=== PATIENT | male | born 1965 | race Caucasian/White ===

== ENCOUNTER → 2017-11-09 | Day surgery (SDC) | payer BC ==
[2017-11-07 08:57] VITALS: BMI 28.2
[~2017-11-09] MED LIST: ACETAMINOPHEN IV (For NPO) 1,000 MG in EMPTY BAG 1 BAG IVPB ONE; DEXAMETHASONE SOD PHOS (MDV) 100 MG/10 ML VIAL ONE; DEXAMETHASONE SOD PHOSPHATE 10 MG/ML 1 ML VIAL IV ONE; LACTATED RINGERS 1,000 ML IV SCH; LIDOCAINE 1% 20 ML VIAL (10MG/ML) FOR IV START INTRADERMA ONE; LIDOCAINE 1% INJ 10MG/ML (20 ML MDV) ONE; MIDAZOLAM 2 MG/2 ML VIAL IV PRN; MIDAZOLAM 2 MG/2 ML VIAL ONE; ONDANSETRON 4 MG/2 ML VIAL IVP ONE; OXYMETAZOLINE 0.05% NASL SPRAY 1 SPRAY BOTTLE EA NOSTRIL ONE; PROPOFOL 10 MG/ML 20 ML VIAL IV ONE; Pre Op ABX Message 1 EACH MISC MISCELLANE ONE; ROCURONIUM BROMIDE 10 MG/ML 10 ML VIAL IV ONE; SCOPOLAMINE 1.5MG/72HR PATCH TRANSDERM ONE; ceFAZolin 1,000 MG in DEXTROSE/WATER 1 50ML.BAG IVPB ONE; ePHEDrine SULFATE/0.9% NACL/PF 50 MG/5 ML SYRINGE IV ONE; fentaNYL (PF) 50 MCG/ML 2 ML AMP IV PRN; fentaNYL (PF) 50 MCG/ML 2 ML AMP ONE
--- NOTE | 2017-11-09 02:03 | HP ---
HISTORY AND PHYSICAL CHIEF COMPLAINT: Nasal stuffiness. HISTORY OF PRESENT ILLNESS: The patient is a 52-year-old male who was recently seen in my office complaining of having nasal stuffiness. The patient has history of having chronic dale sinusitis and also nasal polyps. At the time that he was seen in my office, clinical examination intranasally revealed bilateral nasal polyposis. The patient was placed on a course of dexamethasone for 10 days. This caused the polyps to shrink slightly but they did not completely disappear. Therefore, it was recommended that the patient undergo a bilateral intranasal polypectomy under general anesthesia. PAST MEDICAL HISTORY: Past medical history reveals patient has a known allergy to ASPIRIN and to NSAIDs. CURRENT MEDICATIONS: Include Symbicort, Claritin, Nasacort nasal spray. REVIEW OF SYSTEMS: Review of systems revealed that the respiratory system is positive for asthma. The remainder of the review of systems is essentially unremarkable. PHYSICAL EXAMINATION: The patient is a pleasant 52-year-old male who was alert and cooperative. HEENT examination: Patient is normocephalic. Tympanic membranes are normal. Middle ear spaces are free of any fluid or infection. Pupils equal, round, react to light and accommodation. Extraocular movements within normal limits. Intranasal examination reveals slight septal deviation with slight hypertrophy of the inferior turbinates. In addition, there is bilateral nasal polyps. Examination of oropharynx, palpation of neck and cranial nerves 2 through 12 are all within normal limits. CHEST/CARDIOVASCULAR: Both lung krishna are clear to percussion and auscultation. The patient is in regular sinus rhythm. S1, S2 are present without evidence of any murmurs, S3 or S4. Peripheral pulses are bilaterally symmetrical and within normal limits. ABDOMEN: There is no evidence of any masses, megaly, or tenderness. The abdomen is soft. SKIN: Unremarkable. Musculoskeletal and neurological are within normal limits. RECTAL: The rectal exam is deferred at this time because the patient has this done on a regular basis at his family physician's office. PREVIOUS SURGERIES: Include bilateral nasal polypectomy x1, septoplasty, rhinoplasty, endoscopic sinus surgeries, right shoulder surgery, tonsillectomy, adenoidectomy and a second septoplasty. IMPRESSION: Bilateral nasal polyps. PLAN: The patient is scheduled to undergo a bilateral intranasal polypectomy under general anesthesia. Attention RNs in the pre-surgical area: The only medications I have ordered for this patient to receive preoperatively are 2000 mg of Ancef IV and also 1000 mg of Ofirmev IV, both of these medications are to be given once an intravenous line has been established. If the pharmacy department sends any other pre-surgical prophylactic antibiotics or antibiotic combination to the pre-surgical area for this patient, that order should be cancelled, the medication should be returned to the pharmacy department and make sure that the patient's account is credited appropriately. I have discussed the risks, benefits and alternative therapies for the above-mentioned procedure and for both sedation/analgesia as well as necessary blood product administration, if indicated, as they pertain to this patient. The patient has indicated his or her understanding and acceptance of the risks and procedures discussed. MMODL / IJN: [id number] /
[2017-11-09 13:11] VITALS: TEMP 97.3
[2017-11-09 14:13] VITALS: RESP 16
[2017-11-09 14:33] VITALS: BP 137/92; PULSE 79
--- NOTE | 2017-11-11 15:33 | OP ---
OPERATIVE REPORT DATE OF SURGERY: 11/09/2017. PREOPERATIVE DIAGNOSIS: Bilateral intranasal polyposis. POSTOPERATIVE DIAGNOSIS: Bilateral intranasal polyposis. ANESTHESIA: General anesthesia. PROCEDURE: Bilateral intranasal polypectomy. SURGEON: Dr. Rogel. COMPLICATIONS: None. ESTIMATED BLOOD LOSS: Less than 25 mL. OPERATIVE PROCEDURE: The patient was placed operating table in supine position. After uneventful induction and endotracheal intubation, satisfactory general anesthesia was obtained. Next, both nasal chambers were packed with cottonoids saturated with Afrin nasal spray and left in place for a period of approximately 10 minutes to achieve maximum vasoconstriction of the turbinates. Next inspection revealed that the patient had bilateral intranasal polyposis. Starting with the right naris and using the nasal polypectomy snare with multiple passes, all of the nasal polyps were removed from the right nasal vault. The smaller polyps were vaporized using the electrocautery. Hemostasis was obtained using suction cautery. Next, attention was directed to the left naris where again using the nasal polypectomy snare and with multiple passes, all the polyps were removed and the smaller polyps were vaporized using the suction cautery. Inspection revealed that the patient now had an excellent airway. Because of previous surgery, there was the usual and expected scar tissue. Hemostasis was obtained using electrocautery. In addition to this, both nasal chambers were well dusted with the Joanie Hemaderm hemostatic powder. Next, a mustache dressing was attached. Estimated blood loss was less than 25 mL. At this point, the procedure was terminated. There were no intraoperative complications. The patient tolerated the procedure well and was returned to the recovery room in satisfactory condition. MMODL / IJN: [id number] /
== END | disposition home or self-care (01) ==
LOC: OR 09:38
PROVIDERS: ATTEND Otolaryngology
DX: J33.9 Nasal polyp, unspecified (principal); J34.3 Hypertrophy of nasal turbinates; J32.4 Chronic pansinusitis; J45.909 Unspecified asthma, uncomplicated; Z79.51 Long term (current) use of inhaled steroids; Z79.899 Other long term (current) drug therapy; Z88.6 Allergy status to analgesic agent; Z91.013 Allergy to seafood
CPT/HCPCS: 88305; 30115; J2250; J1100 ×2; J2405; J2001; J3010; J0690; J0131; J2704

== ENCOUNTER 2022-06-18 14:12 | Emergency (ER) | payer BC, OTHER ==
[2022-06-18 14:43] VITALS: RESP 18
[2022-06-18] MEDS ORDERED: FLUORESCEIN STRIPS 1 MG STRIP LEFT EYE ONE (15:51)
--- NOTE | 2022-06-18 16:19 | ED ---
General Adult HPI - General Chief complaint: ENT Stated complaint: FB left eye Time Seen by Provider: 06/18/22 15:45 Source: patient, RN notes reviewed Mode of arrival: ambulatory Limitations: no limitations - History of Present Illness Initial comments: 56-year-old male presents to the emergency department with chief complaint of foreign body in eye. Patient states that he was working on his truck yesterday when a piece of rust flew up under his safety glasses. He states that he now has foreign body sensation. Denies vision changes. Denies contact use. States that he is otherwise healthy. Takes no daily medication. - Related Data Home Medications Medication Instructions Recorded Confirmed Albuterol Inhaler [Ventolin 1 - 2 puff INHALATION Q6HR PRN 12/14/14 11/09/17 Inhaler] Budesonide/Formoterol Fumarate 2 puff INHALATION BID 12/14/14 11/09/17 [Symbicort 80-4.5 Mcg Inhaler] Cetirizine HCl [Zyrtec] 10 mg PO DAILY 12/14/14 11/09/17 Multivitamin [Men's Multi-Vitamin] 1 each PO DAILY 12/14/14 11/09/17 Triamcinolone Acetonide [Nasacort] 2 spray EA NOSTRIL DAILY 11/07/17 11/09/17 methylPREDNISolone [Medrol Dose 4 mg PO DIRECTED 11/07/17 11/09/17 Pack] Previous Rx's Medication Instructions Recorded cefUROXime axetiL [Ceftin] 500 mg PO BID #14 tab NS 11/08/17 Allergies Allergy/AdvReac Type Severity Reaction Status Date / Time NSAIDS (Non-Steroidal AdvReac CONGESTION, Verified 06/18/22 14:40 Anti-Inflamma HEADACHE clams, crabs, oysters Allergy Anaphylaxis Uncoded 06/18/22 14:40 ASPIRIN AdvReac CONGESTION, Uncoded 06/18/22 14:40 HEADACHE Review of Systems ROS Statement: Those systems with pertinent positive or pertinent negative responses have been documented in the HPI. ROS Other: All systems not noted in ROS Statement are negative. Past Medical History Past Medical History: Asthma Additional Past Medical History / Comment(s): nasal polyps History of Any Multi-Drug Resistant Organisms: None Reported Past Surgical History: Orthopedic Surgery Additional Past Surgical History / Comment(s): sinus surgery Past Anesthesia/Blood Transfusion Reactions: Family History of Problems w/ Anesthesia Additional Past Anesthesia/Blood Transfusion Reaction / Comment(s): states had "generalized severe achiness with anesthesia for sinus surgery and I don't want to have that again." Past Psychological History: No Psychological Hx Reported Past Alcohol Use History: Occasional Past Drug Use History: None Reported - Past Family History Mother Family Medical History: Cancer Additional Family Medical History / Comment(s): breast Father History Unknown: Yes General Exam Limitations: no limitations General appearance: alert, in no apparent distress Head exam: Present: atraumatic, normocephalic, normal inspection Eye exam: Present: PERRL, EOMI, conjunctival injection, other (possible FB of left eye, pinpoint area of increased uptake of fluorescein stain over left cornea). Absent: nystagmus, periorbital swelling, periorbital tenderness ENT exam: Present: normal exam, mucous membranes moist Respiratory exam: Present: normal lung sounds bilaterally. Absent: respiratory distress, wheezes, rales, rhonchi, stridor Cardiovascular Exam: Present: regular rate, normal rhythm, normal heart sounds. Absent: systolic murmur, diastolic murmur, rubs, gallop, clicks Psychiatric exam: Present: normal affect, normal mood Skin exam: Present: warm, dry, intact, normal color. Absent: rash Course Vital Signs 06/18/22 06/18/22 14:41 17:37 Temperature 98.9 F 98.7 F Pulse Rate 74 70 Respiratory 18 18 Rate Blood Pressure 153/88 147/84 O2 Sat by Pulse 96 96 Oximetry Medical Decision Making - Medical Decision Making Was pt. sent in by a medical professional or institution (Dr. PA, SENIOR MAINFRAME DEVELOPER, urgent care, hospital, or retirement...) When possible be specific @ -[No] Did you speak to anyone other than the patient for history (EMS, parent, family, police, friend...)? What history was obtained from this source @ -[No] Did you review nursing and triage notes (agree or disagree)? Why? @ -[I reviewed and agree with nursing and triage notes] Were old charts reviewed (outside hosp., previous admission, EMS record, old EKG, old radiological studies, urgent care reports/EKG's, retirement records)? Report findings @ -[No old charts were reviewed] Differential Diagnosis (chest pain, altered mental status, abdominal pain women, abdominal pain men, vaginal bleeding, weakness, fever, dyspnea, syncope, headache, dizziness, GI bleed, back pain, seizure, CVA, palpatations, mental health, musculoskeletal)? @ -[Foreign body, iritis, conjunctivitis, rust ring, this list is not all- inclusive] EKG interpreted by me (3pts min.). @ -[None] X-rays interpreted by me (1pt min.). @ -[None done] CT interpreted by me (1pt min.). @ -[None done] U/S interpreted by me (1pt. min.). @ -[None done] What testing was considered but not performed or refused? (CT, X-rays, U/S, labs)? Why? @ -[None] What meds were considered but not given or refused? Why? @ -[None] Did you discuss the management of the patient with other professionals (professionals i.e. , PA, SENIOR MAINFRAME DEVELOPER, lab, RT, psych nurse, social welfare clerk, machine chocolate molder, teacher, airframe technical officer, shoe caser)? Give summary @ -[No] Was smoking cessation discussed for >3mins.? @ -[No] Was critical care preformed (if so, how long)? @ -[No] Were there social determinants of health that impacted care today? How? (Homelessness, low income, unemployed, alcoholism, drug addiction, transportation, low edu. Level, literacy, decrease access to med. care, alf, rehab)? @ -[No] Was there de-escalation of care discussed even if they declined (Discuss DNR or withdrawal of care, Hospice)? DNR status @ -[No] What co-morbidities impacted this encounter? (DM, HTN, Smoking, COPD, CAD, Cancer, CVA, ARF, Chemo, Hep., AIDS, mental health diagnosis, sleep apnea, morbid obesity)? @ -[None] Was patient admitted / discharged? Hospital course, mention meds given and route, prescriptions, significant lab abnormalities, going to OR and other pertinent info. @ -[Discharged. Patient presented to emergency department with chief complaint of possible left eye foreign body. Proparacaine was applied to the eye and Fluorescein staining was performed which showed a pinpoint area of increased uptake over the cornea. Small foreign body was removed with a cotton tipped applicator. Patient was reevaluated by Dr. Barrientos which agreed that there is a small corneal abrasion. Ciprofloxacin eyedrops were administered. Instructions for use at home discussed. Patient was advised to follow up with ophthalmology. Patient discharged in stable condition. Case discussed with my attending, Dr. Barrientos] Undiagnosed new problem with uncertain prognosis? @ -[No] Drug Therapy requiring intensive monitoring for toxicity (Heparin, Nitro, Insulin, Cardizem)? @ -[No] Were any procedures done? @ -[No] Diagnosis/symptom? @ -[Corneal abrasion] Acute, or Chronic, or Acute on Chronic? @ -Acute Uncomplicated (without systemic symptoms) or Complicated (systemic symptoms)? @ -Uncomplicated Side effects of treatment? @ -[No] Exacerbation, Progression, or Severe Exacerbation? @ -[No] Poses a threat to life or bodily function? How? (Chest pain, [place], [place], pneumonia, PE, COPD, DKA, ARF, appy, cholecystitis, CVA, Diverticulitis, Homicidal, Suicidal, threat to staff... and all critical care pts) @ -[No] Disposition Clinical Impression: Corneal abrasion, left Disposition: HOME SELF-CARE Condition: Stable Instructions (If sedation given, give patient instructions): Eye Foreign Body (ED) Additional Instructions: Apply 2 eye drops to left eye every 6 hours for 5 days. Follow-up with ophthalmology in the next 1-2 days. Please return to the Emergency Department if symptoms worsen or any other concerns. Is patient prescribed a controlled substance at d/c from ED?: No Referrals: [facility],Clinic [Primary Care Provider] - 1-2 days Elias Arndt MD [STAFF PHYSICIAN] - 1-2 days Time of Disposition: 17:09
[2022-06-18] MEDS ORDERED: CIPROFLOXACIN 0.3% OPHTH SOLN 5 ML BTL LEFT EYE STA (17:06)
[2022-06-18 17:38] VITALS: BP 147/84; PULSE 70; TEMP 98.7
== END 2022-06-18 17:38 | disposition home or self-care (01) ==
LOC: EC 14:12
DX: S05.02XA Injury of conjunctiva and corneal abrasion without foreign body, left eye, initial encounter (principal); J45.909 Unspecified asthma, uncomplicated; Z79.52 Long term (current) use of systemic steroids; Z79.51 Long term (current) use of inhaled steroids; Z88.6 Allergy status to analgesic agent; Z88.8 Allergy status to other drugs, medicaments and biological substances; X58.XXXA Exposure to other specified factors, initial encounter; Y92.812 Truck as the place of occurrence of the external cause
CPT/HCPCS: 99282

== ENCOUNTER 2022-12-11 15:45 | Emergency (ER) | payer OTHER ==
[2022-12-11 16:01] VITALS: RESP 18; TEMP 98.4
--- NOTE | 2022-12-11 16:24 | ED ---
Fall HPI - General Chief Complaint: Fall Stated Complaint: Fall, Head injury Time Seen by Provider: 12/11/22 16:11 Source: patient Mode of arrival: ambulatory - History of Present Illness Initial Comments: This patient is a 57-year-old man who states that he was working on a ladder when he slipped and fell off. He landed on his right foot/ankle, and then stumbled backward striking the right occipital area of his head resulting in a laceration. Patient states that when he struck his head there was no loss of consciousness. He did develop a little bit of headache which she took Tylenol foreign states is better now. The patient states that when he is up and trying to walk he does have pain in the right ankle/foot. He has not noted any other injury related to the fall. He states that his last tetanus shot was less than 10 years ago. He is declining further analgesic. 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[address] Fall Occurred: home Loss of Consciousness: none Prolonged Down Time?: no Symptoms Prior to Fall: none Location - Extremities: Left: Foot Severity: moderate Quality: sharp Context: tripped/slipped Associated Symptoms: denies - Related Data Home Medications Medication Instructions Recorded Confirmed Albuterol Inhaler [Ventolin 1 - 2 puff INHALATION Q6HR PRN 12/14/14 11/09/17 Inhaler] Budesonide/Formoterol Fumarate 2 puff INHALATION BID 12/14/14 11/09/17 [Symbicort 80-4.5 Mcg Inhaler] Cetirizine HCl [Zyrtec] 10 mg PO DAILY 12/14/14 11/09/17 Multivitamin [Men's Multi-Vitamin] 1 each PO DAILY 12/14/14 11/09/17 Triamcinolone Acetonide [Nasacort] 2 spray EA NOSTRIL DAILY 11/07/17 11/09/17 methylPREDNISolone [Medrol Dose 4 mg PO DIRECTED 11/07/17 11/09/17 Pack] Previous Rx's Medication Instructions Recorded cefUROXime axetiL [Ceftin] 500 mg PO BID #14 tab NS 11/08/17 Allergies Allergy/AdvReac Type Severity Reaction Status Date / Time NSAIDS (Non-Steroidal AdvReac CONGESTION, Verified 10/23/23 15:50 Anti-Inflamma HEADACHE clams, crabs, oysters Allergy Anaphylaxis Uncoded 12/11/22 15:50 ASPIRIN AdvReac CONGESTION, Uncoded 12/11/22 15:50 HEADACHE Review of Systems ROS Statement: Those systems with pertinent positive or pertinent negative responses have been documented in the HPI. ROS Other: All systems not noted in ROS Statement are negative. Constitutional: Denies: weakness Eyes: Denies: eye pain, vision change ENT: Denies: epistaxis Respiratory: Denies: cough, dyspnea Cardiovascular: Denies: chest pain, syncope Gastrointestinal: Denies: abdominal pain, vomiting Genitourinary: Denies: dysuria, hematuria Musculoskeletal: Reports: as per HPI, arthralgia. Denies: back pain Skin: Reports: as per HPI, other (Laceration) Neurological: Reports: headache. Denies: weakness, numbness, confusion Hematological/Lymphatic: Denies: easy bleeding Past Medical History Past Medical History: Asthma Additional Past Medical History / Comment(s): nasal polyps History of Any Multi-Drug Resistant Organisms: None Reported Past Surgical History: Orthopedic Surgery Additional Past Surgical History / Comment(s): sinus surgery Past Anesthesia/Blood Transfusion Reactions: Family History of Problems w/ Anesthesia Additional Past Anesthesia/Blood Transfusion Reaction / Comment(s): states had "generalized severe achiness with anesthesia for sinus surgery and I don't want to have that again." Past Psychological History: No Psychological Hx Reported Smoking Status: Never smoker Past Alcohol Use History: Occasional Past Drug Use History: None Reported - Past Family History Mother Family Medical History: Cancer Additional Family Medical History / Comment(s): breast Father History Unknown: Yes General Exam Limitations: no limitations General appearance: alert, in no apparent distress Head exam: Present: normocephalic, other (Approximately 3 cm laceration right occipital. No palpable deformity, no tenderness) Eye exam: Present: normal appearance, PERRL, EOMI. Absent: scleral icterus, conjunctival injection, nystagmus Neck exam: Present: normal inspection, full ROM. Absent: tenderness Respiratory exam: Present: normal lung sounds bilaterally. Absent: respiratory distress, wheezes, rales, rhonchi, stridor, chest wall tenderness, accessory muscle use Cardiovascular Exam: Present: regular rate, normal rhythm, normal heart sounds. Absent: systolic murmur, diastolic murmur, rubs, gallop GI/Abdominal exam: Present: soft. Absent: distended, tenderness, guarding, rebound, rigid, mass Extremities exam: Present: normal inspection, tenderness (Medial aspect of the ankle and the right calcaneus with no tenderness, no palpable deformity), normal capillary refill. Absent: pedal edema, calf tenderness Back exam: Present: normal inspection. Absent: CVA tenderness (R), CVA tenderness (L), vertebral tenderness Neurological exam: Present: alert, oriented X3, CN II-XII intact. Absent: motor sensory deficit Skin exam: Present: warm, dry, normal color, other (See above). Absent: rash Course Vital Signs 12/11/22 12/11/22 15:46 18:53 Temperature 98.4 F Pulse Rate 89 76 Respiratory 18 18 Rate Blood Pressure 153/92 138/99 O2 Sat by Pulse 95 95 Oximetry Procedures - Laceration Laceration #1 Consent Obtained: verbal consent Indication: laceration Site: scalp Size (cm): 5 Description: linear Depth: simple, single layer Anesthetic Used: lidocaine 1% Anesthesia Technique: local infiltration Amount (mls): 3 Type of Sutures: nylon Size of Sutures: 5-0 Number of Sutures: 6 Technique: simple, interrupted Patient Tolerated Procedure: well, no complications - Orthopedic Splinting/Casting Injury #1 Lower Extremity Injury Location: foot Lower Extremity Immobilizer: posterior splint, Vilchis dressing Other Orthopedic Equipment: other (Stressed that patient to be nonweightbearing) Medical Decision Making - Medical Decision Making The patient had ankle and foot x-rays which I interpreted as showing acute calcaneus fracture Was pt. sent in by a medical professional or institution (GELA Oswald, WEATHER OBSERVER, urgent care, hospital, or care home...) When possible be specific @ -[No] Did you speak to anyone other than the patient for history (EMS, parent, family, police, friend...)? What history was obtained from this source @ -[No] Did you review nursing and triage notes (agree or disagree)? Why? @ -[I reviewed and agree with nursing and triage notes] Were old charts reviewed (outside hosp., previous admission, EMS record, old EKG, old radiological studies, urgent care reports/EKG's, care home records)? Report findings @ -[No old charts were reviewed] Differential Diagnosis (chest pain, altered mental status, abdominal pain women, abdominal pain men, vaginal bleeding, weakness, fever, dyspnea, syncope, headache, dizziness, GI bleed, back pain, seizure, CVA, palpatations, mental health, musculoskeletal)? @ -[Differential Musculoskeletal Muscular strain, contusion, ligament sprain, fracture, arthritis, septic arthritis, bursitis, cellulitis, muscle spasm, nerve compression, DVT, arterial occlusion, herpes zoster, electrolyte abnormality, tumor.... This is not meant to be in all inclusive list EKG interpreted by me (3pts min.). @ -[As above] X-rays interpreted by me (1pt min.). @ -[I interpreted as above CT interpreted by me (1pt min.). @ -[None done] U/S interpreted by me (1pt. min.). @ -[None done] What testing was considered but not performed or refused? (CT, X-rays, U/S, labs)? Why? @ -[None] What meds were considered but not given or refused? Why? @ -[None] Did you discuss the management of the patient with other professionals (professionals i.e. , PA, WEATHER OBSERVER, lab, RT, psych nurse, executive secretary social welfare, scheduling manager, teacher, financial officer, adult protective caseworker)? Give summary @ -[I discussed the case with the on-call orthopedic service. The request bulky dressing applied, and patient to follow in the clinic. Was smoking cessation discussed for >3mins.? @ -[No] Was critical care preformed (if so, how long)? @ -[No] Were there social determinants of health that impacted care today? How? (Homelessness, low income, unemployed, alcoholism, drug addiction, transportation, low edu. Level, literacy, decrease access to med. care, longterm, rehab)? @ -[No] Was there de-escalation of care discussed even if they declined (Discuss DNR or withdrawal of care, Hospice)? DNR status @ -[No] What co-morbidities impacted this encounter? (DM, HTN, Smoking, COPD, CAD, Cancer, CVA, ARF, Chemo, Hep., AIDS, mental health diagnosis, sleep apnea, morbid obesity)? @ -[None] Was patient admitted / discharged? Hospital course, mention meds given and route, prescriptions, significant lab abnormalities, going to OR and other pertinent info. @ -[Patient seen and evaluated, diagnosed with calcaneus fracture. Discussed with on-call orthopedic service, who will see the patient in clinic. The patient states he probably will prefer to see his previous pacs specialist. I emphasized that he must have close follow-up, given the serious nature of calcaneus fracture and threat to future mobility. Reviewed the return parameters. Undiagnosed new problem with uncertain prognosis? @ -[No] Drug Therapy requiring intensive monitoring for toxicity (Heparin, Nitro, Insulin, Cardizem)? @ -[No] Were any procedures done? @ -[I applied the bulky splint. I performed suture repair of scalp laceration Diagnosis/symptom? @ -[Acute calcaneus fracture Acute scalp laceration Acute, or Chronic, or Acute on Chronic? @ -Acute Uncomplicated (without systemic symptoms) or Complicated (systemic symptoms)? @ -[Uncomplicated Side effects of treatment? @ -[No] Exacerbation, Progression, or Severe Exacerbation? @ -[No] Poses a threat to life or bodily function? How? (Chest pain, [place], [place], pneumonia, PE, COPD, DKA, ARF, appy, cholecystitis, CVA, Diverticulitis, Homicidal, Suicidal, threat to staff... and all critical care pts) @ -[Calcaneus fracture poses a risk to future mobility if not treated properly, this was emphasized to the patient and his partner. Disposition Clinical Impression: Fall, Scalp laceration, Calcaneus fracture, right Disposition: HOME SELF-CARE Condition: Good Instructions (If sedation given, give patient instructions): Laceration (ED), Foot Fracture in Adults (ED) Is patient prescribed a controlled substance at d/c from ED?: No Referrals: [facility],Clinic [Primary Care Provider] - 1-2 days Wale Nielsen DO [Doctor of Osteopathic Medicine] - 1-2 days
--- NOTE | 2022-12-11 16:59 | XR ---
EXAMINATION TYPE: XR foot complete RT DATE OF EXAM: 12/11/2022 COMPARISON: Three-view right foot HISTORY: Fall injury, pain TECHNIQUE: 3 view right foot FINDINGS: There is a comminuted fracture of the calcaneus. There appears to be preservation of Boehle r's angle. Remainder of the right foot appears intact. No additional fractures are evident. IMPRESSION: 1. Comminuted fracture calcaneus.
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
[2022-12-11] MEDS ORDERED: LIDOCAINE 1% INJ 10MG/ML (20 ML MDV) SQ STA (18:09)
[2022-12-11] MEDS ORDERED: BACITRACIN OINT 1 EACH PACKET TOPICAL ONE (18:55)
[2022-12-11 19:04] VITALS: BP 138/99; PULSE 76
== END 2022-12-11 19:06 | disposition home or self-care (01) ==
LOC: EC 15:45
DX: S92.001A Unspecified fracture of right calcaneus, initial encounter for closed fracture (principal); S01.01XA Laceration without foreign body of scalp, initial encounter; J45.909 Unspecified asthma, uncomplicated; Z79.51 Long term (current) use of inhaled steroids; Z79.899 Other long term (current) drug therapy; Z88.6 Allergy status to analgesic agent; W11.XXXA Fall on and from ladder, initial encounter
CPT/HCPCS: 73610; 73630; 12002; 99284; J2001

== ENCOUNTER → 2022-12-14 | Outpatient (CLI) | payer OTHER ==
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
== END | disposition home or self-care (01) ==
LOC: RADCTMAIN 11:08
PROVIDERS: ATTEND Podiatrist Foot & Ankle Surgery
DX: S92.014A Nondisplaced fracture of body of right calcaneus, initial encounter for closed fracture (principal); S82.891A Other fracture of right lower leg, initial encounter for closed fracture; X58.XXXA Exposure to other specified factors, initial encounter

== ENCOUNTER → 2023-02-09 | Outpatient (CLI) | payer OTHER ==
--- NOTE | 2023-02-09 13:09 | CT ---
EXAMINATION TYPE: CT sinus wo con CT DLP: 635 mGycm, Automated exposure control for dose reduction was used. DATE OF EXAM: 02/09/2023 8:52 AM COMPARISON: None. CLINICAL INDICATION:Male, 57 years old with history of J32.9 CHRONIC SINUSITIS; , sinusitis TECHNIQUE: Multiple thin axial images were obtained through the paranasal sinuses without the use of IV contrast. Additional coronal and sagittal reformatted images were submitted for evaluation. Contrast used: none Oral contrast used: none FINDINGS: Extensive mucosal thickening throughout the paranasal sinuses. There is near complete opaci fication of all paranasal sinuses. No evidence for osseous erosion. The ostiomeatal units, frontonasa l and sphenoethmoidal recesses are all opacified. The visualized globes and orbits are intact. Mastoid air cells and temporal bones appear within clarissa l limits. No evidence for bony dehiscence. Is no evidence of fracture. No TMJ dislocation identified. Intracranial structures appear within normal limits IMPRESSION: Severe paranasal sinus disease with near complete opacification of the paranasal sinuses.
== END | disposition home or self-care (01) ==
LOC: RADCTMAIN 08:12
PROVIDERS: ATTEND Otolaryngology
DX: J34.89 Other specified disorders of nose and nasal sinuses (principal); J32.9 Chronic sinusitis, unspecified
CPT/HCPCS: 70486